=== PATIENT | female | born 1950 | race Caucasian/White ===

== ENCOUNTER 2018-06-25 00:54 | Observation (INO) | payer OTHER ==
[~2018-06-25] VITALS: Ht 165.1 cm; Wt 92.5 kg
[2018-06-25 01:10] LABS: Calcium, Ionized (POC) 1.19 mmol/L (1.10-1.46); Chloride (POC) 102 mmol/L (98-108); Creatinine (POC) 0.8 mg/dL (0.6-1.0); Glucose (ISTAT POC) 118 mg/dL (70-99); Hemoglobin (POC) 13.6 g/dL (12.0-16.0); Potassium (POC) 3.3 mmol/L (3.5-5.5); Sodium (POC) 143 mmol/L (135-148); Total CO2 (POC) 28 mmol/L (21-32)
[2018-06-25 01:14] LABS: Hemoglobin 13.9 g/dL (11.5-16.0); Mean Corpuscular HGB Conc 33.1 g/dL (31.5-36.5); Mean Corpuscular Volume 94 fL (80-100); Mean Platelet Volume 10.1 fL (9.1-12.4); Platelet Count 244 K/mm3 (150-400); RDW Coefficient Variation 12.7 % (11.7-14.2); RDW Standard Deviation 43.8 fL (35.1-46.3); Red Blood Cell Count 4.48 M/mm3 (3.80-5.20); White Blood Cell Count 9.44 K/mm3 (4.00-11.30)
[2018-06-25] MEDS ORDERED: FURO40 PO (01:20)
[2018-06-25] MEDS ORDERED: METO25 PO (01:20)
[2018-06-25] MEDS ORDERED: ATOR40TA PO (01:21)
[2018-06-25] MEDS ORDERED: ASPI81CH PO (01:21)
[2018-06-25] MEDS ORDERED: NITR.4SL SL (01:21)
[2018-06-25 01:30] LABS: International Normalized Ratio 0.94
[2018-06-25 01:35] LABS: Magnesium, Blood 1.9 mg/dL (1.6-2.4); Troponin I 0.047 ng/mL (0.000-0.040)
[2018-06-25 01:36] LABS: Alanine Aminotransfer (ALT/SGP 23 U/L (12-78); Albumin, Blood 3.5 g/dL (3.4-5.0); Albumin/Globulin Ratio 1.1 (0.8-1.8); Alk Phos 96 U/L (50-136); Anion Gap 7 mmol/L (6-16); Aspartate Aminotrans (AST/SGOT 17 U/L (12-37); Bilirubin, Total 0.2 mg/dL (0.1-1.0); Blood Urea Nitrogen 16 mg/dL (8-24); Bun/Creatinine Ratio 18.5 (12.0-20.0); CHOL/HDL RATIO 3.3; CO2, Blood 30 mmol/L (21-32); Calcium, Blood 8.9 mg/dL (8.5-10.1); Chloride, Blood 108 mmol/L (98-108); Cholesterol 134 mg/dL (50-200); Creatinine, Blood 0.87 mg/dL (0.40-1.00); Globulin, Blood 3.2 g/dL (2.2-4.0); Glomerular Filtration Rate >60 (60-); Glucose, Blood 116 mg/dL (70-99); HDL Cholesterol 41 mg/dL (>39); LDL/HDL RATIO 1.2; Low Density Lipoprotein Chol 48 mg/dL (0-110); Potassium, Blood 3.5 mmol/L (3.5-5.5); Sodium, Blood 145 mmol/L (136-145); Total Protein, Blood 6.7 g/dL (6.4-8.2); Triglycerides 227 mg/dL (30-160); Very Low Density Lipoprot Chol 45 mg/dL (6-32)
--- NOTE | 2018-06-25 05:30 | NUR ---
ASSUMED CARE- PT ARRIVES TO PCU 15 FROM ER VIA [place] [facility]. AOX4. VSS. PT AMBULATES FROM [facility] TO HOSPITAL BED WITH STANDBY ASSIST. HEPARIN DRIP INFUSING AT CURRENT RATE OF 13 U/KG/HR. PT DENIES CHEST PAIN AT THIS TIME AND REPORTS THAT SHE FEELS MUCH BETTER AND WANTS TO GO HOME. PT EDUCATED ON RIGHTS AND RISKS OF REFUSAL OF TREATMENT. PT PROVIDED INFORMATION ON MEDICATIONS GIVEN IN ER WELL ADDITIONAL ORDERED MEDICATIONS. LUNG SOUNDS CLEAR. WILL CONTINUE WITH ASSESSMENT AND ADMISSION. PT ORIENTED TO ROOM AND CALL LIGHT SYSTEM. EDUCATED ON CALLING FOR ASSISTANCE WITH AMBULATION. BED IN LOW POSITION, CALL LIGHT IN REACH.
--- NOTE | 2018-06-25 08:15 | NUR ---
NURSING PCU DAYSHIFT: Assumed care of pt at approx 0700. A/O, cooperative w/care. Denies any pain/discomfort at rest. Skin is intact w/no breakdown noted. Ambulates independently and w/o difficulty. Tele in place, SB, SBP 90's, no c/o CP/pressure, no noted edema. L/S cta t/o, O2 sat stable on RA, denies dyspnea, no noted cough. Abd SNT, BT+, voiding w/o difficulty per pt. PIV x1, hep gtt infusing as per pharmacy dosing. No s/s of acute distress at this time. Spouse at bedside this a.m., plan of care discussed w/pt and s/o. Hand Rug Cleaner currently at bedside, awaiting rounding from PMD, cont to monitor for any changes.
[2018-06-25 09:46] LABS: Hematocrit 38.9 % (33.0-51.0); Hemoglobin 12.5 g/dL (11.5-16.0); Mean Corpuscular HGB 30.9 pg (26.0-34.0); Mean Corpuscular HGB Conc 32.1 g/dL (31.5-36.5); Mean Corpuscular Volume 96 fL (80-100); Mean Platelet Volume 10.3 fL (9.1-12.4); Platelet Count 233 K/mm3 (150-400); RDW Coefficient Variation 12.8 % (11.7-14.2); RDW Standard Deviation 45.5 fL (35.1-46.3); Red Blood Cell Count 4.04 M/mm3 (3.80-5.20); White Blood Cell Count 8.35 K/mm3 (4.00-11.30)
[2018-06-25 10:20] LABS: Alanine Aminotransfer (ALT/SGP 23 U/L (12-78); Albumin, Blood 3.3 g/dL (3.4-5.0); Alk Phos 88 U/L (50-136); Anion Gap 3 mmol/L (6-16); Aspartate Aminotrans (AST/SGOT 24 U/L (12-37); Bilirubin, Total 1.1 mg/dL (0.1-1.0); Blood Urea Nitrogen 16 mg/dL (8-24); CO2, Blood 32 mmol/L (21-32); Calcium, Blood 8.8 mg/dL (8.5-10.1); Chloride, Blood 108 mmol/L (98-108); Creatinine, Blood 0.94 mg/dL (0.40-1.00); Globulin, Blood 3.2 g/dL (2.2-4.0); Glomerular Filtration Rate >60 (60-); Glucose, Blood 117 mg/dL (70-99); Potassium, Blood 3.8 mmol/L (3.5-5.5); Sodium, Blood 143 mmol/L (136-145); Total Protein, Blood 6.5 g/dL (6.4-8.2)
[2018-06-25 10:33] LABS: Troponin I 1.58 ng/mL (0.000-0.040)
[2018-06-25] MEDS ORDERED: Amiodarone HCl400 MG PO (13:18)
[2018-06-25] MEDS ORDERED: ELIQUIS5 MG PO (13:19)
--- NOTE | 2018-06-25 14:07 | NUR ---
NURSING PCU DISCHARGE SUMMARY: No acute changes noted t/o the a.m. Seen by cardiology, labs ordered, results received and reviewed. Cleared for discharge home by body line finisher, orders received from PMD. Pt and s/o verbalized understanding of all written and verbal discharge instructions. Pt denied any questions/needs. No s/s of acute distress at time of discharge. Escorted from unit via w/c accompanied by PCT at approx 1410.
== END 2018-06-25 14:10 | disposition home or self-care (01) ==
LOC: ER 00:54 → PCU 00:55
PROVIDERS: Emergency Medicine; ADMIT Internal Medicine
DX: I42.1 Obstructive hypertrophic cardiomyopathy (principal); I48.0 Paroxysmal atrial fibrillation; R74.9 Abnormal serum enzyme level, unspecified; I10 Essential (primary) hypertension; E87.6 Hypokalemia; E78.5 Hyperlipidemia, unspecified; Z87.891 Personal history of nicotine dependence; Z85.89 Personal history of malignant neoplasm of other organs and systems
CPT/HCPCS: 36415; 71045; 80047; 80053; 80061; 82550; 83735; 84484; 85014; 85027; 85610; 85730; 86850; 86900; 86901; 93005; 93010; 93306; 96365; 96375; 96376; 99285-25; G0378; J1644; J2405; J7030